=== PATIENT | male | born 1960 | race Caucasian/White ===

== ENCOUNTER → 2022-02-13 14:48 | Outpatient (BNVA) | payer MEDICAID, SELFPAY | PROVIDERS: Referring Provider Family Medicine; Visit Provider Orthopaedic Surgery | DX: M54.50 Low back pain, unspecified (principal) | CPT/HCPCS: 72110; 99203; 99204 ==

== ENCOUNTER → 2022-02-17 10:00 | Outpatient (BNVA) | payer MEDICAID, SELFPAY | PROVIDERS: Referring Provider Family Medicine; Visit Provider Anesthesiology Pain Medicine | DX: G89.29 Other chronic pain (principal); M54.12 Radiculopathy, cervical region; M54.50 Low back pain, unspecified; M79.604 Pain in right leg; M79.605 Pain in left leg | CPT/HCPCS: 99204 ==

== ENCOUNTER → 2022-02-19 12:34 | Outpatient (BNVA) | payer MEDICAID, SELFPAY | PROVIDERS: PCP Family Medicine; Referring Provider Family Medicine; Visit Provider Podiatrist Foot & Ankle Surgery | DX: Q82.8 Other specified congenital malformations of skin (principal); M21.611 Bunion of right foot; M20.41 Other hammer toe(s) (acquired), right foot | CPT/HCPCS: 17110; 73590; 73630; 99203; 99204 ==

== ENCOUNTER → 2022-03-17 09:46 | Outpatient (BNVA) | payer MEDICAID, SELFPAY | PROVIDERS: PCP Family Medicine; Visit Provider Anesthesiology Pain Medicine | DX: G89.29 Other chronic pain (principal); M54.50 Low back pain, unspecified; M54.12 Radiculopathy, cervical region | CPT/HCPCS: 99213 ==

== ENCOUNTER 2022-03-21 14:34 | Outpatient (CLI) | payer MEDICAID, SELFPAY ==
--- NOTE | 2022-03-21 14:46 | MR_ITS ---
WS: [id number] MRI CERVICAL SPINE NONCONTRAST HISTORY: Pain/radiculopathy, cervical REGION COMPARISON: 01/13/2018 Technique: Multiplanar, multisequence noncontrast imaging of the cervical spine. Mild RIGHT curvature cervical spine. Slight increase in the cervical lordosis. Signal within the cervical cord is normal. Visualized posterior fossa is unremarkable. Craniocervical junction, C1 and C2 relationship, odontoid process and soft tissues are normal. Large cervical osteophytes extend anterior and lateral from the vertebral bodies. Most significant at C5, C6 and C7. Disc spaces are narrowed. C2-C3: Normal. C3-C4: Bilateral facet joint arthritis, LEFT greater than RIGHT. Mild bilateral foraminal stenosis, L EFT greater than RIGHT. C4-C5: Diffuse osteophytic ridging with bilateral mild facet joint arthritis. Edema surrounding the L EFT facet joint with increased fluid in the facet joint. Focal central disc protrusion and osteophyte s. Mild central and bilateral foraminal stenosis. C5-C6: Diffuse osteophytic ridging with mild encroachment upon the ventral thecal sac. Very mild cent ral stenosis and mild facet arthritis. C6-C7: Large disc osteophyte contact RIGHT paracentral contacts the ventral thecal sac and deforms th e thecal sac. Moderate facet joint arthritis. Osteophytic ridging around the vertebral bodies greates t to the RIGHT. Moderate central and bilateral foraminal stenosis. Slightly greater encroachment upon the RIGHT lateral thecal sac by disc osteophyte. C7-T1: Mild osteophytic ridging. No high-grade stenosis. Paraspinal soft tissue are normal. MR/MR cervical spin wo con* [id number] IMPRESSION: 1. Advanced degenerative spondylitic changes with degenerative scoliosis throu ghout the cervical spine. Very large hypertrophic osteophytes at C5, C6 and C7 extend predominantly anterior. 2. Large disc osteophyte complex RIGHT paracentral contacts the ventral thecal sac at C6-7. 3. Moderate central and bilateral foraminal stenosis at C6-7 due to disc and o steophyte disease. Slightly greater contact on the RIGHT. 4. Mild central and bilateral foraminal stenosis at C4-5. 5. Mild foraminal stenosis at C3-4. 6. Mild central stenosis and facet disease at C5-6. 7. Mild acute synovitis involving the LEFT facet joint and soft tissues at C4- 5.
--- NOTE | 2022-03-21 16:45 | MR_ITS ---
WS: [id number] MRI LUMBAR SPINE NONCONTRAST HISTORY: Back pain. COMPARISON: 02/25/2018 TECHNIQUE: Sagittal and axial multisequence imaging is submitted. Mild straightening of the normal lumbar lordosis. Small amount of reactive marrow edema at T12 and L2 . No acute fractures. Disc spaces are mildly desiccated. Degenerative endplate changes are mild at L4-5. Conus terminates normally at L1. L1-L2: Mild asymmetric disc bulging greatest to the RIGHT. Deformity of the RIGHT lateral thecal sac and contact on the traversing RIGHT L2 nerve root. Mild subarticular recess stenosis on the RIGHT. L2-L3: Mild annular disc bulging with moderate facet and ligamentum flavum hypertrophy. Hypertrophic changes extend into the posterior lateral thecal sac from the facets. Mild central and bilateral fora patricia stenosis. L3-L4: Mild annular disc bulging and osteophytic ridging. LEFT foraminal disc protrusion with annular fissure. Moderate ligamentum flavum hypertrophy and facet arthritis. Mild central and bilateral suba rticular recess stenosis and proximal LEFT foraminal stenosis. L4-L5: Marked annular disc bulging and osteophytic ridging. Ligamentum flavum and marked facet arthri tis. Narrowing of the thecal sac with moderate central, bilateral subarticular recess and foraminal s tenosis. Slightly greater narrowing of the RIGHT foramen. There is disc and osteophyte encroachment u alda the L4 and L5 nerve roots. L5-S1: Diffuse annular disc bulging. Diffuse osteophytic ridging. Osteophyte and disc disease encroac hes into the foramen, significantly greater on the RIGHT with near complete effacement of CSF. Greate st contact on the exiting RIGHT L5 nerve root. Mild stenosis on the LEFT. Mild bilateral subarticular recess stenosis. Mild bilateral facet arthritis. MR/MR lumbar spine wo con* [id number] IMPRESSION: 1. Straightening of the normal lumbar lordosis with degenerative disc disease at L4-5 and L5-S1. 2. Severe RIGHT foraminal stenosis at L5-S1. Stenosis due to combination of di sc and facet disease and osteophytosis. 3. Mild bilateral subarticular recess and LEFT foraminal stenosis at L5-S1. 4. Moderate central, bilateral subarticular recess and foraminal stenosis at L 4-5. 5. Mild central, bilateral subarticular recess and proximal LEFT foraminal lora nosis at L3-4. 6. Mild central and bilateral foraminal stenosis at L2-3.
== END 2022-03-21 14:35 | disposition home or self-care (01) ==
LOC: RAD 14:35
PROVIDERS: PCP Family Medicine; Visit Provider Orthopaedic Surgery
DX: M54.2 Cervicalgia (principal); M54.9 Dorsalgia, unspecified; G89.29 Other chronic pain; M51.37 Other intervertebral disc degeneration, lumbosacral region; M48.07 Spinal stenosis, lumbosacral region; M48.02 Spinal stenosis, cervical region; M47.892 Other spondylosis, cervical region; M65.88 Other synovitis and tenosynovitis, other site
CPT/HCPCS: 72141; 72148

== ENCOUNTER 2022-04-04 07:01 | Outpatient (CLI) | payer MEDICAID, SELFPAY ==
--- NOTE | 2022-04-04 07:19 | USCV_ITS ---
Harpreet Bradley Age: 61 Gender: M : 1960 Exam Date: 04/04/2022 07:30 Ordering Phys: Simon Howard XX Technologist: Lisa Hensley [place] [facility] [place]: Dizziness and SOB BP: 130 / 70 HR: 48 Rhythm: Sinus Technical Quality: Adequate MEASUREMENTS (Male / Female) Normal Values 2D ECHO LV Diastolic Diameter PLAX 4.4 cm 4.2 - 5.9 / 3.9 - 5.3 cm LV Systolic Diameter PLAX 2.9 cm LV Chamber Size 3.4 cm IVS Diastolic Thickness 1.0 cm 0.6 - 1.0 / 0.6 - 0.9 cm IVS Systolic Thickness 1.3 cm LVPW Diastolic Thickness 1.1 cm 0.6 - 1.0 / 0.6 - 0.9 cm LVPW Systolic Thickness 1.3 cm RV Chamber Size 2.5 cm LVOT Diameter 2.0 cm LV Ejection Fraction 2D Teich 61.4 % LV Ejection Fraction MOD 2C 71.5 % LV Ejection Fraction 2C AL 71.9 % LA Diameter 4.0 cm LA Width 3.2 cm LA Height 3.5 cm RA Width 3.1 cm RA Height 3.6 cm Aorta at Sinotubular Diameter 2.2 cm IVC Diameter 1.7 cm M-MODE Aortic Annulus Diameter 2.9 cm LA Ao Ratio MM 1.5 MV E Point Septal Separation 0.4 cm DOPPLER AV Peak Velocity 152.0 cm/s LVOT Peak Velocity 155.0 cm/s AV Area Cont Eq vti 2.6 cm squared AV Area Cont Eq pk 3.4 cm squared MV Area PHT 4.0 cm squared Mitral E to A Ratio 1.4 MV E' Velocity 48.5 cm/s Mitral E to MV E' Ratio 8.3 Mitral E to LV E' Lateral Ratio 9.2 Mitral E to LV E' Septal Ratio 7.5 TR Peak Velocity 269.0 cm/s TR Peak Gradient 29.0 mmHg TR Mean Velocity 208.5 cm/s TR Mean Gradient 18.5 mmHg TR Velocity Time Integral 76.9 cm TV Peak E Velocity 91.0 cm/s Right Atrial Pressure 3.0 mmHg Pulmonary Artery Systolic Pressu 32.0 mmHg PV Peak Velocity 85.0 cm/s RV Acceleration Time 0.2 s RV Ejection Time 0.4 s RV AcT/ET 0.4 FINDINGS Left Ventricle Normal left ventricular size, systolic function and wall thickness, with no regional wall motion abnormalities. Normal left ventricular wall thickness. Normal diastolic filling pattern. Left ventricular ejection fraction is estimated at 65 %. Right Ventricle The right ventricle is normal in size and function. Right Atrium The right atrium is normal in size. Left Atrium The left atrium is normal in size. Mitral Valve Structurally normal mitral valve without significant stenosis or prolapse. There is no mitral regurgitation. Aortic Valve Structurally normal aortic valve without significant sclerosis or stenosis. There is no aortic regurgitation. Tricuspid Valve Structurally normal tricuspid valve without significant stenosis or regurgitation. Pulmonary artery systolic pressure is normal. Pulmonic Valve Structurally normal pulmonic valve. Trace pulmonary valve regurgitation. Pericardium Normal pericardium without effusion. Aorta Normal ascending aorta dimension. IVC The inferior vena cava pulmonary and hepatic veins appear normal. CONCLUSIONS Normal transthoracic echocardiogram. Dr. Jame Mitchell MD (Electronically Signed) Final Date: 04 April 2022 12:17 S
[2022-04-04 14:13] VITALS: BMI 24.4
--- NOTE | 2022-04-04 14:16 | ECG_ITS ---
[facility] Test Date: 2022-04-04 Pat Name: Harpreet Bradley Department: Room: Gender: Male [employer] Technician: Petty Leblanc : 1960 Requested By: Simon Howard Order Number: [id number] Hernandez MD: Alison Andujar M.D. Interpretive Statements NAME OF STUDY: TREADMILL STRESS TEST INDICATION: Chest Pain, PROCEDURE: At the baseline, the patient's blood pressure was 175/96 with a heart rate of 55. The baseline electrocardiogram showed sinus bradycardia with a heart rate of 55 bpm. Poor R wave progression. The patient exercised for 13 minutes on a standard Deshawn protocol. Patient attained a maximum heart rate of 139 beats per minute(86% of the maximum predicted heart rate) with a blood pressure at the peak exercise of 196/64 mm Hg. The EKG at the peak exercise revealed no significant changes. Patient did not have any chest pain or any significant cardiac arrhythmias with the exercise During the recovery phase, there were no new changes. Blood pressure at the end of the recovery phase was 154/91 mm Hg with a heart rate of 76 per minute. CONCLUSION: 1. Normal EKG response to treadmill exercise 2. No exercise-induced chest pain or cardiac arrhythmia 3. Good exercise tolerance, attained a maximum of 17.2 METs Electronically Signed On 04-18-2022 6:23:27 CDT by Alison Andujar M.D. [email or web address]
[2022-04-04 14:49] VITALS: BP 154/91; PULSE 74
== END 2022-04-04 07:02 | disposition home or self-care (01) ==
LOC: CDL 07:01
PROVIDERS: PCP Family Medicine; Visit Provider Family Medicine
DX: R06.00 Dyspnea, unspecified (principal); R07.9 Chest pain, unspecified
CPT/HCPCS: 93017; 93306

== ENCOUNTER → 2022-04-14 10:31 | Outpatient (BNVA) | payer MEDICAID, SELFPAY | PROVIDERS: PCP Family Medicine; Visit Provider Anesthesiology Pain Medicine | DX: M54.12 Radiculopathy, cervical region (principal); M54.50 Low back pain, unspecified; M79.602 Pain in left arm; M79.601 Pain in right arm; M79.605 Pain in left leg; M79.604 Pain in right leg | CPT/HCPCS: 99214; 99215 ==

== ENCOUNTER → 2022-04-24 13:19 | Outpatient (BNVA) | payer MEDICAID, SELFPAY | PROVIDERS: PCP Family Medicine; Visit Provider Internal Medicine | DX: B19.20 Unspecified viral hepatitis C without hepatic coma (principal); M54.2 Cervicalgia; M54.9 Dorsalgia, unspecified; G89.29 Other chronic pain; B18.2 Chronic viral hepatitis C; M54.12 Radiculopathy, cervical region | CPT/HCPCS: 82105; 87902 ==

== ENCOUNTER → 2022-04-30 13:41 | Outpatient (BNVA) | payer MEDICAID, SELFPAY | PROVIDERS: PCP Family Medicine; Visit Provider Anesthesiology Pain Medicine | DX: G89.29 Other chronic pain (principal); M79.18 Myalgia, other site; M54.12 Radiculopathy, cervical region; M47.812 Spondylosis without myelopathy or radiculopathy, cervical region; M79.604 Pain in right leg; M79.605 Pain in left leg; M79.601 Pain in right arm; M79.602 Pain in left arm | CPT/HCPCS: 20553; 99214 ==

== ENCOUNTER 2022-05-23 10:43 | Outpatient (CLI) | payer MEDICAID, SELFPAY ==
--- NOTE | 2022-05-23 12:15 | US_ITS ---
WS: [id number] RIGHT UPPER QUADRANT ULTRASOUND HISTORY: hepatitis c COMPARISON: None available. Liver: 18.4 cm in length. Liver is very slightly enlarged with coarse echotexture. No mass identified . No bile duct dilatation. Portal Vein: Normal hepatopetal flow with monophasic waveform. Gallbladder: Normally distended gallbladder with no stones or wall thickening. CBD: 0.2 cm Pancreas: Tail and head are obscured by bowel gas. The body is normal. Right kidney: 10.4 cm in length. Normal size and echogenicity. No hydronephrosis or mass. Aorta and IVC: Unremarkable abdominal aorta and IVC. No ascites. US/US liver [id number] IMPRESSION: 1. Normal gallbladder. 2. Mild hepatomegaly and hepatic steatosis. No bile duct dilatation.
== END 2022-05-23 10:44 | disposition home or self-care (01) ==
LOC: RAD 10:44
PROVIDERS: PCP Family Medicine; Visit Provider Internal Medicine
DX: B19.20 Unspecified viral hepatitis C without hepatic coma (principal); R16.0 Hepatomegaly, not elsewhere classified; K76.0 Fatty (change of) liver, not elsewhere classified
CPT/HCPCS: 76705

== ENCOUNTER → 2022-06-25 13:13 | Outpatient (BNVA) | payer MEDICAID, SELFPAY | PROVIDERS: PCP Family Medicine; Visit Provider Podiatrist Foot & Ankle Surgery | DX: Q82.8 Other specified congenital malformations of skin (principal); M21.611 Bunion of right foot; M20.41 Other hammer toe(s) (acquired), right foot | CPT/HCPCS: 17110; 73610; 99214 ==

== ENCOUNTER 2022-07-11 06:59 | Day surgery (SDC) | payer MEDICAID, SELFPAY ==
[2022-07-10 10:54] VITALS: BMI 24.4
--- NOTE | 2022-07-11 | SCC_ITS ---
Procedure done: Deep bone biopsy right tibia and fibula CPT code 19904 12 seconds of fluoroscopic guidance, for a cumulative dose of 0.323 mGy, was provided to Dr. Fierro by the radiology department. C-arm images of the right lower leg were saved for the patient's permanent record. [facility]
--- NOTE | 2022-07-11 | XR_ITS ---
WS: [id number] XR tibia fibula RT 2V [id number] REASON FOR EXAM: Bone lesion right tibia and right fibula FINDINGS: Bone biopsy needle positioned in the region of previously demonstrated calcific/ossific density betwe en the distal right tibia and fibula. No other abnormality. XR/XR tibia fibula RT 2V [id number] IMPRESSION: Bone biopsy needle positioning as above.
[2022-07-11] MEDS: sodium chloride 0.9% 1,000 ML 30 ML IV (07:50)
[2022-07-11 07:54] VITALS: BP 181/85; PULSE 59; RESP 16; TEMP 36.6; O2SAT 98
--- NOTE | 2022-07-11 08:22 | W.PM.OPSUD ---
Surgery/Procedure H&P Update DATE OF PROCEDURE: July 11, 2022 DATE H&P PERFORMED: 06/25/22 CHANGES TO PREVIOUS DOCUMENTATION: None PREOP DIAGNOSIS: Bone lesion right tibia and right fibula PLANNED PROCEDURE: Operation Date: 07/11/22 08:30 Proposed Procedures p Bone Biospy Lower Extremity/tibia and fibia /733.20(Right) - Abdiaziz Fierro DPM
--- NOTE | 2022-07-11 08:23 | PM.OP ---
Operative Report Date of procedure: July 11, 2022 Pre-op diagnosis: Preop Diagnosis Bone lesion right tibia and right fibula Post-op diagnosis: Same Post-op findings: None Procedure done: Deep bone biopsy right tibia and fibula CPT code 14325 Implants: 4-0 nylon Pathology: Core needle biopsy right tibia and fibula Surgeon: Abdiaziz Fierro D.P.M. Paring Machine Operator: Ramses Estimated blood loss: Less than 5 No tourniquet IV fluids: None Urine output: None Complications: None Brief History: Bone lesion at the right lateral tibia and medial fibula has cortical irregularity appreciated on x-ray taken 06/25/2022.? Scheduled for bone biopsy to rule out malignancy will be done July 11, 2022 outpatient under MAC anesthesia. Risks include but are not limited to pain, bleeding, numbness, infection, damage to adjacent soft tissue structures and need for further surgical intervention. Procedure: Under mild sedation the patient was brought to the operating room and remained on the gurney in supine position. A timeout was performed. Anesthesia was then administered by the anesthesia service. Local anesthesia injected by myself consisting of 20 cc of 0.5% Marcaine plain in a V-block proximal to the planned needle biopsy site to the right leg. Right lower extremity was scrubbed, prepped and draped utilizing normal aseptic technique. Attention was directed to the right tibia and fibula where under fluoroscopy a 3 mm Jamshidi needle was utilized to perform a deep needle core biopsy to include the periosteum and cortex of the fibula and tibia under fluoroscopic guidance directly into the bone lesion, fluoroscopy utilized and confirmed in all 3 planes to be within the lesion, biopsy was taken and sent to pathology to rule out malignancy. Incision was flushed with saline and closed with 4-0 nylon. Patient tolerated the procedure and anesthesia well and was transferred to the PACU with vital signs stable and vascular status intact. Following a period of postoperative monitoring she will be discharged home may be weightbearing as tolerated. He will be contacted as soon as results are available for review. He has follow-up scheduled in podiatry clinic for suture removal and continued care.
[2022-07-11] MEDS: ceFAZolin 2,000 MG in sodium chloride 0.9% (plus) 50 ML 100 MG IV (08:34)
[2022-07-11 09:03] VITALS: BP 96/60; PULSE 55; RESP 16; TEMP 36.1; O2SAT 93
[2022-07-11 09:08] VITALS: BP 91/59; PULSE 56; RESP 18; O2SAT 95
[2022-07-11 09:10] VITALS: BP 117/72; PULSE 54; RESP 15; TEMP 36.2; O2SAT 94
[2022-07-11 09:13] VITALS: BP 123/75; PULSE 52; RESP 16; TEMP 36.6; O2SAT 94
[2022-07-11 09:28] VITALS: BP 144/86; PULSE 50; RESP 17; O2SAT 99
--- NOTE | 2022-07-11 10:06 | ANES.PREANE2 ---
Pre-Anesthetic Assessment Height/Weight: Height 1.8 m Weight 79.379 kg Temp Pulse Resp BP Pulse Ox O2 Del Method 98 F 50 L 17 144/86 99 07/11/22 09:13 07/11/22 09:28 07/11/22 09:28 07/11/22 09:28 07/11/22 09:28 07/11/22 09:28 Preop Diagnosis: Bone lesion right tibia and right fibula Operation Date: 07/11/22 08:30 Proposed Procedures p Bone Biospy Lower Extremity/tibia and fibia 70531/733.20(Right) - Abdiaziz Fierro DPM Familial anesthetic complications: none Was Beta Christopher taken within 24 hours: N/A Was Clonidine taken within 24 hours: N/A Last intake: Intake Last Liquid Date 07/10/22 Last Liquid Time 21:00 Last Solid Date 07/10/22 Last Solid Time 21:00 Social Tobacco and No alcohol Exam alert, oriented x 3 and regular rate & rhythm Airway Submandibular: within normal limits Cervical ROM: within normal limits Mallampati: Class II Dentition: false Pulmonary Chronic Obstructive Pulmonary Disease Hepatic Hepatitis (C) Musc/skel Lower Back Pain and Osteoarthritis/DJD Anesthetic Plan ASA status: 3 Anesthesia: MAC Medications/Allergies Home Medications Medication Instructions Recorded Confirmed Last Taken Type LILLY 02/17/22 06/25/22 Unknown History glecaprevir 100 mg-pibrentasvir 40 3 tab PO DAILY #84 tabs 06/04/22 07/11/22 07/11/22 Rx mg tablet (Mavyret) gabapentin 300 mg capsule 300 mg PO TID pain #90 caps 06/25/22 07/11/22 07/11/22 Rx tizanidine 4 mg tablet 4 mg PO BID PRN muscle spasticity 06/25/22 07/11/22 07/11/22 Rx #60 tabs hydrocodone 5 mg-acetaminophen 325 1 tab PO Q6H PRN pain 7 days #14 07/11/22 Unknown Rx mg tablet tabs Allergies Allergy/AdvReac Type Severity Reaction Status Date / Time Sulfa (Sulfonamide Allergy mouth Verified 06/25/22 13:00 Antibiotics) swelling Current Medications Generic Name Dose Route Start Last Admin Trade Name Freq PRN Reason Stop Dose Admin Sodium Chloride 1,000 mls @ 30 mls/hr 07/11/22 07:30 07/11/22 09:27 Sodium Chloride 0.9% IV 07/12/22 07:29 Infused .Q24H JAYDEN Infusion PFSH Anesthesia Family History Other CAD (coronary artery disease) Cancer Diabetes Hepatitis C Hypertension Social History Smoking and tobacco status: current every day smoker (smokes Phizzbo) Second hand smoke exposure: No Alcohol intake: former Year of sobriety/quit date alcohol: 1995 History of recent travel: No Data Anesthesia Cardiac Studies: Echocardiogram 04/04/22
--- NOTE | 2022-07-11 10:07 | ANE.PACU2 ---
Inpatient post-anesthesia follow up: Airway intact: Yes Vital signs: Temperature 98 F Pulse Rate 50 Respiratory Rate 17 Blood Pressure 144/86 Pulse Oximetry 99 Oxygen Delivery Me thod Room Air Oxygen Flow Rate Fraction of Inspir ed Oxygen Hydration adequate: Yes Nausea and vomiting: No Pain level: 2 Mental status: Baseline
== END 2022-07-11 09:35 | disposition home or self-care (01) ==
PROVIDERS: PCP Family Medicine; Visit Provider Podiatrist Foot & Ankle Surgery
PROC: (CPT 20225; principal; 2022-07-11 08:20)
DX: M89.9 Disorder of bone, unspecified (principal); J44.9 Chronic obstructive pulmonary disease, unspecified; Z86.19 Personal history of other infectious and parasitic diseases; F17.200 Nicotine dependence, unspecified, uncomplicated
CPT/HCPCS: 20225; 73590; 76000; 88307; 88311; J2405; J2704; J3490; J7030

== ENCOUNTER 2022-07-11 09:42 | Outpatient (CLI) | payer MEDICAID, SELFPAY | END 2022-07-11 09:43 | disposition home or self-care (01) | LOC: LAB 09:44 | PROVIDERS: PCP Family Medicine; Visit Provider Internal Medicine | DX: B19.20 Unspecified viral hepatitis C without hepatic coma (principal) | CPT/HCPCS: 36415; 87522 ==

== ENCOUNTER 2022-07-16 10:22 | Outpatient (CLI) | payer MEDICAID, SELFPAY ==
[2022-07-16 10:46] LABS: Basophils # 0.1 10^3/uL (0.0-0.1); Basophils % 0.7 %; Eosinophils # 0.2 10^3/uL (0.0-0.8); Eosinophils % 2.2 %; Hematocrit 44.5 % (42.0-52.0); Hemoglobin 15.3 g/dL (11.7-16.6); Lymphocytes # 4.2 10^3/uL (0.8-4.8); Mean Corpuscular HGB Conc 34.4 g/dL (30.0-36.0); Mean Corpuscular Hemoglobin 32.6 pg (28.0-34.0); Mean Corpuscular Volume 94.9 fl (80-94); Mean Platelet Volume 9.6 fL (7.4-10.4); Monocytes # 0.6 10^3/uL (0.2-0.9); Monocytes % 7.1 %; Neutrophils # 3.83 10^3/uL (1.8-7.7); Neutrophils % 42.6 %; Nucleated Red Blood Cells % 0 %; Platelet Count 302 10^3/cmm (130-400); Red Blood Count 4.69 10^6/uL (4.1-5.3); Red Cell Distribution Width 12.6 % (12.1-15.1)
[2022-07-16 10:50] LABS: Erythrocyte Sedimentation Rate 24 mm/hr (0-10)
[2022-07-16 11:07] LABS: Chloride 101 mmol/L (98-107); Potassium 4.3 mmol/L (3.5-5.1); Sodium 135 mmol/L (136-145)
[2022-07-16 11:25] LABS: Alanine Aminotransferase 46 U/L (0-41); Anion Gap 14.3 (5-19); Aspartate Amino Transferase 27 U/L (0-40); Blood Urea Nitrogen 15 mg/dL (8-23); Calcium 9.7 mg/dL (8.5-10.5); Carbon Dioxide 24 mmol/L (22-29); Glomerular Filtration Rate 137.4 mL/min (90-130); Glucose 106 mg/dL (65-115); Osmolality Calculated 281 mOsm/kg (285-295); Total Bilirubin 0.3 mg/dL (0.15-1.2); Total Protein 7.7 g/dL (6.6-8.7)
[2022-07-16 11:26] LABS: Albumin Level 4.3 g/dL (3.5-5.2); Alkaline Phosphatase 73 U/L (40-130); Globulin 3.4 g/dL (1.3-4.6)
[2022-07-16 11:31] LABS: LAB Peripheral Smear Sent for Review
[2022-07-17 14:09] LABS: Lyme AB Screen <0.90 index
[2022-07-22 17:43] LABS: E. Chaffeensis AB IGG <1:64; E. Chaffeensis AB IGM <1:20
[2022-07-26 16:58] LABS: RMSF IGG DETECTED; RMSF IGM NOT DETECTED
== END 2022-07-16 10:23 | disposition home or self-care (01) ==
PROVIDERS: PCP Family Medicine; Visit Provider Podiatrist Foot & Ankle Surgery
DX: D49.2 Neoplasm of unspecified behavior of bone, soft tissue, and skin (principal); W57.XXXA Bitten or stung by nonvenomous insect and other nonvenomous arthropods, initial encounter
CPT/HCPCS: 80053; 85025; 85651; 86140; 86618; 86666; 86757

== ENCOUNTER 2022-10-20 12:15 | Outpatient (CLI) | payer MEDICAID, SELFPAY ==
[2022-10-22 22:28] LABS: HEP C RNA Viral Load Quant <1.18 NOT DETECTED Log IU/mL (NOT DETECTED); HEP C RNA Viral Load Quant <15 NOT DETECTED IU/mL (NOT DETECTED)
== END 2022-10-20 12:16 | disposition home or self-care (01) ==
LOC: LAB 12:21
PROVIDERS: PCP Family Medicine; Visit Provider Internal Medicine
DX: B18.2 Chronic viral hepatitis C (principal)
CPT/HCPCS: 36415; 87522

== ENCOUNTER → 2022-12-09 09:36 | Outpatient (BNVA) | payer MEDICAID, SELFPAY | PROVIDERS: PCP Family Medicine; Visit Provider Orthopaedic Surgery | DX: M47.812 Spondylosis without myelopathy or radiculopathy, cervical region (principal); M47.816 Spondylosis without myelopathy or radiculopathy, lumbar region | CPT/HCPCS: 72050; 72110 ==

== ENCOUNTER 2022-12-30 06:00 | Outpatient (RCR) | payer MEDICAID, SELFPAY | END 2022-12-30 23:59 | disposition home or self-care (01) | LOC: WPT 06:00 | PROVIDERS: PCP Family Medicine; Visit Provider Orthopaedic Surgery | DX: M54.50 Low back pain, unspecified (principal); G89.29 Other chronic pain | CPT/HCPCS: 97161 ==

== ENCOUNTER 2022-12-31 06:00 | Outpatient (RCR) | payer MEDICAID, SELFPAY | END 2023-01-30 23:59 | disposition home or self-care (01) | LOC: WPT 06:00 | PROVIDERS: PCP Family Medicine; Visit Provider Orthopaedic Surgery | DX: M54.50 Low back pain, unspecified (principal); G89.29 Other chronic pain | CPT/HCPCS: 97110; 97530 ==

== ENCOUNTER 2023-01-31 06:00 | Outpatient (RCR) | payer MEDICAID, SELFPAY | END 2023-03-01 23:59 | disposition home or self-care (01) | LOC: WPT 06:00 | PROVIDERS: PCP Family Medicine; Visit Provider Orthopaedic Surgery | DX: M54.50 Low back pain, unspecified (principal); G89.29 Other chronic pain | CPT/HCPCS: 97110; 97530 ==

== ENCOUNTER 2023-03-17 09:47 | Outpatient (CLI) | payer MEDICAID, SELFPAY ==
[2023-03-17 10:21] LABS: Basophils # 0.1 10^3/uL (0.0-0.1); Basophils % 0.6 %; Eosinophils # 0.2 10^3/uL (0.0-0.8); Eosinophils % 1.9 %; Hematocrit 44.1 % (42.0-52.0); Hemoglobin 14.8 g/dL (11.7-16.6); Lymphocytes # 3.1 10^3/uL (0.8-4.8); Mean Corpuscular HGB Conc 33.6 g/dL (30.0-36.0); Mean Corpuscular Volume 92.5 fl (80-94); Mean Platelet Volume 9.3 fL (7.4-10.4); Monocytes # 0.7 10^3/uL (0.2-0.9); Monocytes % 7.8 %; Neutrophils # 5.36 10^3/uL (1.8-7.7); Neutrophils % 56.5 %; Nucleated Red Blood Cells % 0 %; Platelet Count 324 10^3/cmm (130-400); Red Blood Count 4.77 10^6/uL (4.1-5.3); Red Cell Distribution Width 13.2 % (12.1-15.1); White Blood Count 9.5 10^3/uL (4.0-10.0)
[2023-03-17 10:42] LABS: Alanine Aminotransferase 19 U/L (0-41); Albumin Level 4.3 g/dL (3.5-5.2); Alkaline Phosphatase 87 U/L (40-130); Anion Gap 15.6 (5-19); Aspartate Amino Transferase 14 U/L (0-40); Blood Urea Nitrogen 21 mg/dL (8-23); Calcium 9.1 mg/dL (8.5-10.5); Carbon Dioxide 23 mmol/L (22-29); Chloride 104 mmol/L (98-107); Globulin 3.4 g/dL (1.3-4.6); Glomerular Filtration Rate 114.6 mL/min (90-130); Glucose 91 mg/dL (65-115); Osmolality Calculated 289 mOsm/kg (285-295); Potassium 4.6 mmol/L (3.5-5.1); Sodium 138 mmol/L (136-145); Total Bilirubin 0.3 mg/dL (0.15-1.2); Total Protein 7.7 g/dL (6.6-8.7)
== END 2023-03-17 09:48 | disposition home or self-care (01) ==
PROVIDERS: PCP Family Medicine; Visit Provider Orthopaedic Surgery
DX: M48.062 Spinal stenosis, lumbar region with neurogenic claudication (principal)
CPT/HCPCS: 36415; 80053; 85025

== ENCOUNTER → 2023-07-13 15:16 | Outpatient (BNVA) | payer MEDICAID, SELFPAY | PROVIDERS: PCP Family Medicine; Visit Provider Nurse Practitioner | DX: T14.8XXA Other injury of unspecified body region, initial encounter (principal); W57.XXXA Bitten or stung by nonvenomous insect and other nonvenomous arthropods, initial encounter | CPT/HCPCS: 86618; 86666; 86757 ==

== ENCOUNTER → 2024-01-28 14:25 | Outpatient (BNVA) | payer MEDICAID, SELFPAY | PROVIDERS: PCP Family Medicine; Visit Provider Family Medicine | DX: F32.1 Major depressive disorder, single episode, moderate (principal); R09.82 Postnasal drip; M86.60 Other chronic osteomyelitis, unspecified site; M19.071 Primary osteoarthritis, right ankle and foot | CPT/HCPCS: 73590; 73630 ==

== ENCOUNTER 2024-03-09 08:06 | Outpatient (CLI) | payer MEDICAID, SELFPAY ==
--- NOTE | 2024-03-09 08:45 | USCV_ITS ---
Harpreet Bradley Age: 63 Gender: M : 1960 Exam Date: 03/09/2024 08:23 Ordering Phys: Nii Covarrubias MD Technologist: CT Exam Location: [facility] – [place]_ Indication: cp BP: 128 / 62 HR: 51 Rhythm: Sinus Technical Quality: Adequate MEASUREMENTS (Male / Female) Normal Values 2D ECHO LVOT Diameter 2.2 cm LV Ejection Fraction MOD 2C 72.2 % LV Ejection Fraction 2C AL 72.9 % LA Diameter 3.7 cm RA Systolic Volume 4C AL 42.9 ml RA Systolic Volume 4C MOD 40.4 ml LA Sys Volume AL 56.5 cm cubed LA Sys Volume Index AL 28.6 cm cubed/m squared Aorta at Sinotubular Diameter 2.5 cm IVC Diameter 1.8 cm M-MODE LA Ao Ratio MM 1.6 AV Cusp Separation MM 2.2 cm DOPPLER AV Peak Velocity 195.0 cm/s LVOT Peak Velocity 146.0 cm/s AV Area Cont Eq vti 2.7 cm squared AV Area Cont Eq pk 2.8 cm squared MV Peak Velocity 71.0 cm/s MV Area PHT 2.4 cm squared Mitral E to A Ratio 1.0 TR Peak Velocity 194.0 cm/s TR Peak Gradient 15.1 mmHg TV Peak E Velocity 116.0 cm/s Right Atrial Pressure 3.0 mmHg Pulmonary Artery Systolic Pressu 18.1 mmHg PV Peak Velocity 156.0 cm/s FINDINGS Left Ventricle Normal left ventricular size and systolic function with no regional wall motion abnormalities. EF is 60 to 65%. Right Ventricle The right ventricle is normal in size and function. Right Atrium The right atrium is normal in size. Left Atrium The left atrium is normal in size. Mitral Valve Structurally normal mitral valve. There is trace mitral regurgitation. Aortic Valve Structurally normal aortic valve . There is no aortic stenosis or aortic regurgitation. Tricuspid Valve Insufficient TR jet to evaluate RVSP Pulmonic Valve Not well-visualized. Pericardium Normal pericardium without effusion. Aorta Normal ascending aorta dimension. IVC The inferior vena cava appears normal. CONCLUSIONS LV systolic function is normal with EF of 60-65% Trace mitral regurgitation Compared to prior echocardiogram from 2021, no significant changes are seen Bryon Fulton MD (Electronically Signed) Final Date: 14 Mar 2024 08:50 S
[2024-03-09 08:53] LABS: Blood Urea Nitrogen 15 mg/dL (8-23)
[2024-03-09] MEDS: iohexol 350 mg/mL 500 mL Btl (per mL) IV (09:14)
== END 2024-03-09 08:07 | disposition home or self-care (01) ==
PROVIDERS: Family Provider Family Medicine; PCP Family Medicine; Visit Provider Podiatrist Foot & Ankle Surgery
DX: R07.9 Chest pain, unspecified (principal)
CPT/HCPCS: 75635; 82565; 84520; 93306; Q9967

== ENCOUNTER 2024-03-09 14:00 | Outpatient (CLI) | payer MEDICAID, SELFPAY ==
--- NOTE | 2024-03-09 14:00 | CTR_ITS ---
PROCEDURE INFORMATION: Exam: CTA Abdominal Aorta and Bilateral Lower Extremities (Run-off) With Contrast Exam date and time: 03/09/2024 9:02 AM Age: 63 years old Clinical indication: Other: Difficulty walking and tightness in lower legs; Patient HX: Difficulty walking and tightness in calves; Additional info: Claudication TECHNIQUE: Imaging protocol: Computed tomographic angiography of the of the abdominal aorta, pelvis and bilateral lower extremities with contrast. 3D rendering (Not supervised by radiologist): MIP and/or 3D reconstructed images were created by the technologist. Radiation optimization: All CT scans at this facility use at least one of these dose optimization techniques: automated exposure control; mA and/or kV adjustment per patient size (includes targeted exams where dose is matched to clinical indication); or iterative reconstruction. Contrast material: OMNIPAQUE 350; Contrast volume: 125 ml; Contrast route: INTRAVENOUS (IV); COMPARISON: CR XR foot RT min 3V* [id number] 28/01/2024 14:42 RADIATION DOSE METRICS: Total DLP (mGy-cm): 1504.99 FINDINGS: Aorta: The abdominal aorta is normal. Celiac trunk and mesenteric arteries: No occlusion or significant stenosis. Renal arteries: No occlusion or significant stenosis. Right iliac arteries: No occlusion . Mild stenosis at the origin of the right internal iliac artery Right femoral/popliteal arteries: There is occlusion of the distal right femoral artery at the level of Antonio's canal with reconstitution of the suprapatella right popliteal artery. No underlying calcified plaque is identified. Consider embolus. Right infrapopliteal arteries: Three-vessel runoff to the right ankle. Left iliac arteries: Near occlusion at the origin of the left internal iliac artery Left femoral/popliteal arteries: The left femoral artery is patent but there is occlusion of the suprapatella left popliteal artery which reconstitutes just above the level of the left knee joint space. No underlying calcified plaque is identified. Consider embolus. Left infrapopliteal arteries: Three-vessel runoff to the left ankle. Liver: Hepatic steatosis. The liver is enlarged measuring 21.3 cm in craniocaudal dimension. Gallbladder and bile ducts: Unremarkable. No calcified stones. No ductal dilation. Pancreas: Unremarkable. No mass. No ductal dilation. Spleen: Normal. No splenomegaly. Adrenal glands: Normal. No mass. Kidneys and ureters: Normal. No mass. Stomach and bowel: Unremarkable. No obstruction. No mucosal thickening. Colonic diverticulosis but no evidence of diverticulitis. Appendix: Normal appendix Urinary bladder: Unremarkable. No mass. Reproductive: Mild prostatomegaly Intraperitoneal space: Unremarkable. No free air. No significant fluid collection. Lymph nodes: No lymphadenopathy. Bones/joints: Chronic degenerative disc disease at L4-L5 and L5-S1. No acute osseous lesions are identified. Soft tissues: Unremarkable. CT/CT angio abd aorta runof [id number] IMPRESSION: 1. 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 No underlying calcified plaques are identified suggesting this could represent an acute/subacute occlusion. Consider embolus 2. Occlusion of the suprapatella left popliteal artery with reconstitution of the mid left popliteal artery. No underlying calcified plaques are identified suggesting this could represent an acute/subacute occlusion. Consider embolus 3. Three-vessel runoff to each ankle 4. Near occlusion at the origin of the left internal iliac artery 5. Hepatomegaly and hepatic steatosis
== END 2024-03-09 14:01 | disposition home or self-care (01) ==
LOC: RAD 04-07 11:58
PROVIDERS: Family Provider Family Medicine; PCP Family Medicine; Visit Provider Podiatrist Foot & Ankle Surgery
DX: I73.9 Peripheral vascular disease, unspecified (principal); K76.0 Fatty (change of) liver, not elsewhere classified; M51.36 Other intervertebral disc degeneration, lumbar region; M51.37 Other intervertebral disc degeneration, lumbosacral region
CPT/HCPCS: 75635

== ENCOUNTER 2024-03-11 16:01 | Outpatient (CLI) | payer MEDICAID, SELFPAY ==
--- NOTE | 2024-03-11 17:00 | USR_ITS ---
PROCEDURE INFORMATION: Exam: US Duplex Lower Extremity Veins, Bilateral Exam date and time: 03/11/2024 4:07 PM Age: 63 years old Clinical indication: Pain; Leg, lower; Bilateral; Additional info: Potential embolus TECHNIQUE: Imaging protocol: Real-time duplex ultrasound of the bilateral extremities with 2-D harp scale, color Doppler flow and spectral waveform analysis including responses to compression and other maneuvers (when performed) with image documentation. Complete exam focused on the lower extremity veins. COMPARISON: CT angio abd aorta runof [id number] 03/09/2024 9:02 AM FINDINGS: Right deep veins: Unremarkable. The common femoral, femoral, proximal profunda femoral and popliteal veins are patent without thrombus. Normal Doppler waveforms. Normal compressibility and/or augmentation response. Left deep veins: Unremarkable. The common femoral, femoral, proximal profunda femoral and popliteal veins are patent without thrombus. Normal Doppler waveforms. Normal compressibility and/or augmentation response. Superficial veins: Greater saphenous veins at the saphenofemoral junctions are patent bilaterally without thrombus. Soft tissues: Unremarkable. US/CV venous duplex [facility] [id number] IMPRESSION: No evidence of deep vein thrombosis.
== END 2024-03-11 16:02 | disposition home or self-care (01) ==
LOC: RAD 16:01
PROVIDERS: Family Provider Family Medicine; PCP Family Medicine; Visit Provider Podiatrist Foot & Ankle Surgery
DX: I82.90 Acute embolism and thrombosis of unspecified vein (principal)
CPT/HCPCS: 93970

== ENCOUNTER → 2025-04-28 10:56 | Outpatient (BNVA) | payer MEDICAID, SELFPAY | PROVIDERS: Family Provider Family Medicine; PCP Family Medicine; Visit Provider Family Medicine | DX: Z13.6 Encounter for screening for cardiovascular disorders (principal) | CPT/HCPCS: 80053; 80061; 84439; 84443; 85025 ==

== ENCOUNTER → 2025-09-19 15:40 | Outpatient (BNVA) | payer MEDICAID, SELFPAY | PROVIDERS: Family Provider Family Medicine; PCP Family Medicine; Visit Provider Orthopaedic Surgery | DX: M48.061 Spinal stenosis, lumbar region without neurogenic claudication (principal); M54.2 Cervicalgia; G89.29 Other chronic pain | CPT/HCPCS: 72050; 72110 ==

== ENCOUNTER 2025-09-29 10:33 | Outpatient (CLI) | payer MEDICAID, SELFPAY ==
--- NOTE | 2025-09-29 11:00 | MRR_ITS ---
PROCEDURE INFORMATION: Exam: MR Lumbar Spine Without Contrast Exam date and time: 09/29/2025 11:21 AM Age: 64 years old Clinical indication: Low back pain; -fall 2013, chronic pain since, bilat leg pain TECHNIQUE: Imaging protocol: Magnetic resonance imaging of the lumbar spine without contrast. COMPARISON: MR lumbar spine wo con* [id number] 03/21/2022 3:55 PM FINDINGS: Bones/joints: There are 5 [id number] lumbar vertebral elements with the 1st lumbar vertebral element designated as L1. There is anterior degenerative spondylosis at L1-S1. There is T1 and T2 hyperintense signal at the L2-L3 endplates compatible with Modic type 2 endplate changes. Spinal cord: Visualized cord, conus medullaris and cauda equina are unremarkable without compression. Disc spaces: There is disc desiccation at L3-L4, L4-L5, and L5-S1. Disc space heights: There is disc space narrowing at L3-L4, L4-L5, and L5-S1. L1-L2: No significant disc bulge or herniation. No severe spinal canal stenosis. No significant neural foraminal narrowing. L2-L3: No significant disc bulge or herniation. No severe spinal canal stenosis. No significant neural foraminal narrowing. L3-L4: No significant disc bulge or herniation. No severe spinal canal stenosis. No significant neural foraminal narrowing. L4-L5: There is severe bilateral facet arthrosis with a mild disc bulge causing mild bilateral neural foraminal stenosis with mild spinal canal stenosis. L5-S1: There is severe bilateral facet arthrosis with a right foraminal disc bulge causing mild right neural foraminal stenosis without left neural foraminal stenosis or spinal canal stenosis. Soft tissues: Unremarkable. MR/MR lumbar spine wo con* [id number] IMPRESSION: 1. Disc space narrowing and disc desiccation at L3-L4, L4-L5, and L5-S1. 2. Modic type 2 endplate changes at L2-L3. 3. Degenerative spondylosis as above. 4. Mild disc bulge at L4-L5 causing mild bilateral neural foraminal stenosis with mild spinal canal stenosis. 5. Right foraminal disc bulge at L5-S1 causing mild right neural foraminal stenosis without spinal canal stenosis.
== END 2025-09-29 10:34 | disposition home or self-care (01) ==
LOC: RAD 10:33
PROVIDERS: Family Provider Family Medicine; PCP Family Medicine; Visit Provider Orthopaedic Surgery
DX: M48.061 Spinal stenosis, lumbar region without neurogenic claudication (principal)
CPT/HCPCS: 72148